=== PATIENT | female | born 1995 | race Caucasian/White ===

== ENCOUNTER 2017-03-03 12:16 | Emergency (ER) | payer OTHER ==
[2017-03-03 12:25] VITALS: BMI 44.8
[2017-03-03 12:34] VITALS: RESP 18; O2SAT 100
[2017-03-03] MEDS ORDERED: Sodium Chloride 0.9% 1,000 ML IV STA (12:37)
--- NOTE | 2017-03-03 12:52 | ED PDOC ---
Arrival/HPI - General Chief Complaint: Abdominal Pain Time Seen by Provider: 03/03/17 12:30 Historian: Patient - History of Present Illness Narrative History of Present Illness (Text): 03/03/17 12:40 Becky De Luna is a 21 year old female who presents to the emergency department for 3 day duration of lower abdominal pain. Patient denies any nausea , vomiting, diarrhea, or genitourinary symptoms including vaginal discharge and bleeding. Patient's LNMP was 6 months ago and has seen a automotive internet sales manager who told the patient that her symptoms are hormone related. Patient also reports taking Advil for symptoms which temporarily alleviates the pain. PMD: None reported. Time/Duration: < week (3 days) Symptom Onset: Gradual Symptom Course: Unchanged Activities at Onset: Light Context: Home Associated Symptoms (Text): 03/03/17 13:13 3 day history of lower abdominal pain with no nausea vomiting or diarrhea. No genitourinary symptoms. No fever or chills. No vaginal discharge or bleeding. No injury or trauma. She has never experienced this previously. She takes Advil which helps temporarily. She has severe hirsutism. LMP is approximately 6 months ago. She reports that she saw the OR ASSISTANT who told her it was a problem with her hormones. She is scheduled to follow-up next month. Past Medical History - Provider Review Nursing Documentation Reviewed: Yes - Cardiac Hx Cardiac Disorders: No - Pulmonary Hx Respiratory Disorders: No - Neurological Hx Neurological Disorder: No - HEENT Other/Comment: Left eye lid problem - Renal Other/Comment: Kidney problem - Endocrine/Metabolic Other/Comment: Hormone problem, being seen by DANDY TENDER - Hematological/Oncological Hx Blood Disorders: No - Integumentary Hx Dermatological Disorder: No - Musculoskeletal/Rheumatological Hx Musculoskeletal Disorders: No - Gastrointestinal Hx Gastrointestinal Disorders: No - Genitourinary/Gynecological Hx Genitourinary Disorders: No - Psychiatric Hx Psychophysiologic Disorder: No Hx Depression: No Hx Emotional Abuse: No Hx Physical Abuse: No Hx Substance Use: No - Surgical History Other/Comment: Left Eye lid surgery x 3 - Suicidal Assessment Feels Threatened In Home Enviroment: No Family/Social History - Physician Review Nursing Documentation Reviewed: Yes Family/Social History: No Known Family HX Smoking Status: Never Smoked Hx Alcohol Use: No Hx Substance Use: No Hx Substance Use Treatment: No Allergies/Home Meds Allergies/Adverse Reactions: Allergies shellfish derived Allergy (Verified 03/03/17 12:30) RASH Review of Systems - Physician Review All systems were reviewed & negative as marked: Yes - Review of Systems Constitutional: Normal. absent: Fevers Respiratory: Normal. absent: SOB Cardiovascular: Normal. absent: Chest Pain Gastrointestinal: Abdominal Pain (Lower Abdominal Pain). absent: Diarrhea, Nausea, Vomiting Genitourinary Female: Normal. absent: Dysuria, Frequency, Hematuria, Vaginal Bleeding, Vaginal Discharge Skin: Normal Neurological: Normal. absent: Headache, Dizziness Physical Exam Vital Signs Reviewed: Yes Vital Signs Temp Pulse Resp BP Pulse Ox 03/03/17 16:15 98.4 F 96 H 18 137/83 100 03/03/17 12:31 98.6 F 102 H 18 147/87 100 Temperature: Afebrile Blood Pressure: Normal Pulse: Tachycardic Respiratory Rate: Normal Appearance: Positive for: Well-Appearing, Non-Toxic, Comfortable, Other (Obese) Pain Distress: None Mental Status: Positive for: Alert and Oriented X 3 - Systems Exam Head: Present: Atraumatic, Normocephalic Pupils: Present: PERRL Extroacular Muscles: Present: EOMI Conjunctiva: Present: Normal Mouth: Present: Moist Mucous Membranes Pharnyx: No: ERYTHEMA, EXUDATE, TONSILS ENLARGED Neck: Present: Normal Range of Motion Respiratory/Chest: Present: Clear to Auscultation, Good Air Exchange. No: Respiratory Distress, Accessory Muscle Use Cardiovascular: Present: Regular Rate and Rhythm, Normal S1, S2. No: Murmurs Abdomen: Present: Tenderness (Suprapubic LLQ & RLQ tenderness, mild), Normal Bowel Sounds. No: Distention, Peritoneal Signs, Rebound, Guarding Back: Present: Normal Inspection. No: CVA Tenderness Upper Extremity: Present: Normal Inspection. No: Cyanosis, Edema Lower Extremity: Present: Normal Inspection. No: Edema Neurological: Present: GCS=15, CN II-XII Intact, Speech Normal, Motor Func Grossly Intact Skin: Present: Warm, Dry, Normal Color, Other (Moderate Acne). No: Rashes Psychiatric: Present: Alert, Oriented x 3, Normal Insight, Normal Concentration Medical Decision Making ED Course and Treatment: 03/03/17 12:40 Impression: 21 year old female with lower abdominal pain, no nausea, vomiting, diarrhea or urinary symptoms. Plan: -- Abdomen US -- Pelvis US -- Labs -- Pepcid -- IV Fluids -- Toradol -- Reassess and disposition Prior Visits: Notes and results from previous visits were reviewed. Patient was last seen in the emergency department on 11/04/14 for flank pain. Progress Notes: 03/03/17 16:02 Abdominal ultrasound has been read by the radiologist. We are waiting for the pelvic ultrasound reading. 03/03/17 16:42 Pelvic ultrasound as read by the radiologist shows no acute findings - Lab Interpretations Lab Results: 03/03/17 12:59 03/03/17 13:28 Lab Results 03/03/17 13:28: Sodium 138, Potassium 4.0, Chloride 101, Carbon Dioxide 25, Anion Gap 16, BUN 11, Creatinine 0.6, Est GFR ( Amer) > 60, Est GFR (Non- Af Amer) > 60, Random Glucose 105, Calcium 9.3, Total Bilirubin 0.7, AST 32, ALT 47, Alkaline Phosphatase 107, Total Protein 9.0 H, Albumin 4.5, Globulin 4.5 , Albumin/Globulin Ratio 1.0 L, Lipase 66 03/03/17 12:59: Urine Color Yellow, Urine Appearance Clear, Urine pH 7.5, Ur Specific [place] 1.020, Urine Protein 30 H, Urine Glucose (UA) Negative, Urine Ketones Negative, Urine Blood Small H, Urine Nitrate Negative, Urine Bilirubin Negative, Urine Urobilinogen 1.0 H, Ur Leukocyte Esterase Negative, Urine RBC 2 - 5, Urine WBC 0 - 2, Ur Epithelial Cells 3 - 4, Urine Bacteria Small, Urine HCG , Qual Negative 03/03/17 12:59: WBC 6.7, RBC 4.21, Hgb 12.8, Hct 37.2, MCV 88.4, MCH 30.4, MCHC 34.4, RDW 13.6, Plt Count 335, MPV 9.0, Gran % 50.3, Lymph % (Auto) 40.6 H, [place] % (Auto) 8.2 H, Eos % (Auto) 0.6 L, Baso % (Auto) 0.3, Gran # 3.39, Lymph # 2.7, [place] # 0.6, Eos # 0.0, Baso # 0.02 I have reviewed the lab results: Yes - RAD Interpretation Radiology Orders: 03/03/17 12:37 ABDOMEN COMPLETE [US] Stat 03/03/17 12:38 PELVIS ULTRASOUND [US] Routine Abdominal ultrasound is read by the radiologist shows no acute findings. She does have an atrophic kidney, which she is aware of from . Senior Control Systems Engineer: Radiologist - Medication Orders Current Medication Orders: Discontinued Medications Famotidine (Pepcid) 20 mg IVP STAT STA Stop: 03/03/17 12:38 Last Admin: 03/03/17 12:56 Dose: 20 mg Sodium Chloride (Sodium Chloride 0.9%) 1,000 mls @ 1,000 mls/hr IV .Q1H STA Stop: 03/03/17 13:36 Last Admin: 03/03/17 12:56 Dose: 1,000 mls/hr Ketorolac Tromethamine (Toradol) 30 mg IVP STAT STA Stop: 03/03/17 12:38 Last Admin: 03/03/17 12:56 Dose: 30 mg - Luisibe Statement The provider has reviewed the documentation as recorded by the Ursula Whittington Provider Attestation: All medical record entries made by the Ursula were at my direction and personally dictated by me. I have reviewed the chart and agree that the record accurately reflects my personal performance of the history, physical exam, medical decision making, and the department course for this patient. I have also personally directed, reviewed, and agree with the discharge instructions and disposition. Disposition/Present on Arrival - Present on Arrival Any Indicators Present on Arrival: No History of DVT/PE: No History of Uncontrolled Diabetes: No Urinary Catheter: No History of Decub. Ulcer: No History Surgical Site Infection Following: None - Disposition Have Diagnosis and Disposition been Completed?: Yes Diagnosis: Abdominal pain Disposition: HOME/ ROUTINE Disposition Time: 16:42 Patient Plan: Discharge Condition: GOOD Discharge Instructions (ExitCare): Acute Abdominal Pain (ED) Additional Instructions: Follow-up with PMD and OR ASSISTANT. Follow-up in the ER as needed. Prescriptions: Naproxen [Naprosyn] 500 mg PO BID #14 tab Referrals: Sarah Beth Esquivel DO [Primary Care Provider] - Follow up with primary
[2017-03-03 13:01] LABS: ADD MANUAL DIFF? NO
[2017-03-03 13:04] LABS: PH,URINE 7.5 (4.7-8.0); URINE BILIRUBIN NEGATIVE (NEGATIVE); URINE BLOOD SMALL (NEGATIVE); URINE GLUCOSE (UA) NEGATIVE (NEGATIVE); URINE KETONE NEGATIVE (NEGATIVE); URINE LEUKOCYTE ESTERASE NEGATIVE Leu/uL (NEGATIVE); URINE PROTEIN 30 mg/dL (<30 mg/dL)
[2017-03-03 13:05] LABS: BASO # 0.02 K/mm3 (0.0-2.0); BASO % 0.3 % (0.0-3.0); EOS % 0.6 % (1.5-5.0); GRAN # 3.39 (1.4-6.5); GRAN % 50.3 % (50.0-68.0); HEMATOCRIT 37.2 % (36.0-48.0); LYMPH # 2.7 (1.2-3.4); LYMPH % 40.6 % (22.0-35.0); MEAN CELL VOLUME 88.4 fL (80.0-105.0); MEAN CORPUSCULAR HEMOGLOBIN 30.4 pg (25.0-35.0); MEAN CORPUSCULAR HGB CONC 34.4 g/dl (31.0-37.0); MONO # 0.6 (0.1-0.6); MONO % 8.2 % (1.0-6.0); PLATELET COUNT 335 10^3/uL (120.0-450.0); RED CELL DISTRIBUTION WIDTH 13.6 % (11.5-14.5); WHITE BLOOD COUNT 6.7 10^3/ul (4.5-11.0)
[2017-03-03 13:06] LABS: URINE APPEARANCE CLEAR (CLEAR); URINE COLOR YELLOW (YELLOW)
[2017-03-03 13:25] LABS: URINE BACTERIA SMALL (NEG); URINE WBC 0 - 2 /hpf (0-6)
[2017-03-03 13:51] LABS: ALKALINE PHOSPHATASE 107 U/L (38-133); ALT/SGPT 47 U/L (7-56); AST/SGOT 32 U/L (15-39); BILIRUBIN,TOTAL 0.7 mg/dL (0.2-1.3); BLOOD UREA NITROGEN 11 mg/dL (7-21); CALCIUM 9.3 mg/dL (8.4-10.5); CARBON DIOXIDE 25 mmol/L (21-33); CHLORIDE 101 mmol/L (98-107); GFR AFRICAN-AMERICAN > 60; GLUCOSE,RANDOM 105 mg/dL (70-110); LIPASE 66 U/L (23-300); SODIUM 138 mmol/L (132-148)
--- NOTE | 2017-03-03 14:28 | US ---
HISTORY: pain COMPARISON: None. TECHNIQUE: Sonographic evaluation of the abdomen. FINDINGS: LIVER: Measures 12.7 cm. Mild diffusely increased echogenicity of the liver parenchyma. No mass. No intrahepatic bile duct dilatation. GALLBLADDER: Unremarkable. No gallstones. COMMON BILE DUCT: Measures 3 mm. No stones. No dilatation. PANCREAS: Unremarkable as visualized. No mass. No ductal dilatation. RIGHT KIDNEY: Right kidney suboptimally demonstrated. What appears to be the right kidney measures approximately 8.8 cm in length. Likely mildly atrophic. No mass, calculus or hydronephrosis. LEFT KIDNEY: Measures 10.2cm. Normal echogenicity. No calculus, mass, or hydronephrosis. SPLEEN: Normal in size and contour. No mass. AORTA: No aneurysmal dilatation. IVC: Unremarkable. OTHER FINDINGS: None. IMPRESSION: Probable atrophic right kidney. Poorly visualized, particularly upper pole. No mass, calculus or hydronephrosis identified in either kidney. Mild fatty liver. Otherwise unremarkable.
[2017-03-03 16:15] VITALS: BP 137/83; PULSE 96; TEMP 98.4
--- NOTE | 2017-03-03 16:39 | US ---
HISTORY: pain COMPARISON: None available. TECHNIQUE: Transabdominal FINDINGS: UTERUS: Measures 6.0 x 1.7 x 2.7 cm. Normal in size and appearance. No fibroid or other mass lesion seen. ENDOMETRIUM: Measures 5 mm in diameter. Unremarkable. CERVIX: No cervical abnormality identified. RIGHT OVARY: Measures 2.6 x 2.2 x 2.0 cm. No solid mass. Normal flow. 1.4 cm follicle. LEFT OVARY: Measures 2.5 x 1.4 x 2.3 cm. No solid mass. Normal flow. FREE FLUID: No significant free fluid noted. OTHER FINDINGS: None. IMPRESSION: Unremarkable pelvic ultrasound examination.
== END 2017-03-03 16:50 | disposition home or self-care (01) ==
LOC: ED 12:16
DX: R10.9 Unspecified abdominal pain (principal)
CPT/HCPCS: 76700; 76856; 80053; 81001; 83690; 84703; 85025; 96361; 96374; 96375; 99284; J1885; J7040

== ENCOUNTER 2017-10-11 21:50 | Emergency (ER) | payer OTHER ==
[2017-10-11 22:16] VITALS: RESP 18; TEMP 98.4; BMI 42.4
[2017-10-11] MEDS ORDERED: DiphenhydrAMINE 50 mg/ml Inj IVP STA (22:25)
[2017-10-11] MEDS ORDERED: Sodium Chloride 0.9% 1,000 ML IV STA (22:26)
--- NOTE | 2017-10-11 22:29 | ED PDOC ---
Arrival/HPI - General Chief Complaint: Headache Time Seen by Provider: 10/11/17 21:58 Historian: Patient, Parent (father) - History of Present Illness Narrative History of Present Illness (Text): 10/11/17 22:26 This 22 yo female presents to this ED c/o MCCOLLUM x 2 weeks. Patient stated MCCOLLUM has worsen today. Patient noted she has not wearing her prescription eye glasses x 7 days, since they broke. Patient noted MCCOLLUM is left sided. Patient denies fever , diplopia, dizziness, skin rash, sick contact, recent travel, recent trauma, n/ v, photophobia, fever, weakness, paresthesias, or abnormal gait. Time/Duration: Other (see hpi) Symptom Onset: Gradual Symptom Course: Worsening Quality: Throbbing Context: Home Past Medical History - Provider Review Nursing Documentation Reviewed: Yes - Cardiac Hx Cardiac Disorders: No - Pulmonary Hx Respiratory Disorders: No - Neurological Hx Neurological Disorder: No - HEENT Other/Comment: Left eye lid problem - Renal Other/Comment: Kidney problem - Endocrine/Metabolic Other/Comment: Hormone problem, being seen by CRUSHER SUPERVISOR - Hematological/Oncological Hx Blood Disorders: No - Integumentary Hx Dermatological Disorder: No - Musculoskeletal/Rheumatological Hx Musculoskeletal Disorders: No - Gastrointestinal Hx Gastrointestinal Disorders: No - Genitourinary/Gynecological Hx Genitourinary Disorders: No - Psychiatric Hx Psychophysiologic Disorder: No Hx Depression: No Hx Emotional Abuse: No Hx Physical Abuse: No Hx Substance Use: No - Surgical History Other/Comment: Left Eye lid surgery x 3 - Suicidal Assessment Feels Threatened In Home Enviroment: No Family/Social History - Physician Review Nursing Documentation Reviewed: Yes Family/Social History: Other (noncontributory) Smoking Status: Never Smoked Hx Alcohol Use: No Hx Substance Use: No Hx Substance Use Treatment: No Allergies/Home Meds Allergies/Adverse Reactions: Allergies shellfish derived Allergy (Verified 10/11/17 22:10) RASH Home Medications: Home Meds Medication Instructions Recorded Confirmed Hydrochlorothiazide [Microzide] 12.5 mg PO QWK 10/11/17 10/11/17 Review of Systems - Review of Systems Constitutional: Normal. absent: Fatigue, Weight Change, Fevers Eyes: Normal. absent: Vision Changes ENT: Normal. absent: Sore Throat Respiratory: Normal. absent: SOB, Cough Cardiovascular: Normal. absent: Chest Pain, Palpitations Gastrointestinal: Normal. absent: Abdominal Pain, Nausea, Vomiting Genitourinary Female: Normal. absent: Dysuria, Frequency, Hematuria, Vaginal Bleeding, Vaginal Discharge Musculoskeletal: Normal. absent: Back Pain, Neck Pain, Myalgias Skin: Normal. absent: Rash Neurological: Headache. absent: Dizziness, Focal Weakness, Gait Changes, Speech Changes, Facial Droop, Disequilibrium, Seizure Endocrine: Normal Hemo/Lymphatic: Normal Psychiatric: Normal Physical Exam Vital Signs Temp Pulse Resp BP Pulse Ox 10/12/17 02:05 77 18 132/74 100 10/12/17 00:00 78 18 132/78 99 10/11/17 22:12 98.4 F 83 18 138/80 98 10/11/17 22:09 98.4 F 83 20 138/80 98 Temperature: Afebrile Blood Pressure: Normal Pulse: Regular Respiratory Rate: Normal Appearance: Positive for: Well-Appearing, Non-Toxic, Comfortable Pain Distress: None Mental Status: Positive for: Alert and Oriented X 3 - Systems Exam Head: Present: Atraumatic, Normocephalic Pupils: Present: PERRL Extroacular Muscles: Present: EOMI Conjunctiva: Present: Normal Mouth: Present: Moist Mucous Membranes Pharnyx: Present: Normal. No: ERYTHEMA, EXUDATE, TONSILS ENLARGED Neck: Present: Normal Range of Motion. No: Meningeal Signs Respiratory/Chest: Present: Clear to Auscultation, Good Air Exchange. No: Respiratory Distress, Accessory Muscle Use, Wheezes, Retracting, Rhonchi, Tachypneic Cardiovascular: Present: Regular Rate and Rhythm, Normal S1, S2. No: Murmurs Abdomen: No: Tenderness Upper Extremity: Present: Normal Inspection, Normal ROM Lower Extremity: Present: Normal Inspection, Normal ROM Neurological: Present: GCS=15, CN II-XII Intact, Speech Normal, Motor Func Grossly Intact, Normal Sensory Function, Normal Cerebellar Funct, Gait Normal, Memory Normal Skin: Present: Warm, Dry, Normal Color. No: Rashes Psychiatric: Present: Alert, Oriented x 3 Medical Decision Making ED Course and Treatment: 10/12/17 12:49 Nurse stated left iv access had infiltrated and a warmth compress was place on the site. Patient denies pain or discomfort. Patient was recommended to continue applying warmth compress for 1-2 days. To return to emergency if symptoms worsen. 10/12/17 01:49 Re-evaluation. Patient feels better. Discussed results and plan with patient who expresses understanding. All questions answered and there is agreement with the plan to discharge home with instructions. Patient stable for discharge. Return if symptoms persist or worsen Patient was recommended to follow up with neurologist for MCCOLLUM. To see private Business Development Intern to have eye exam, and replacement of her eye glasses. Re-evaluation Time: 01:32 Reassessment Condition: Re-examined, Improved - RAD Interpretation Narrative RAD Interpretations (Text): 10/12/17 00:41 [facility] Division of Radiology [address] [place] [address] Tel. no. Patient Name: JOSE RAMON HECTOR Pt. Address: [address] [place] [address] Rec #: [id number] [place] [address]: Artem Burrell PA-C Pt Order Location: ED : 1995 Female Age: 22 Order #: [id number] Reason for exam: MCCOLLUM CT Scan HEAD W/O CONTRAST Exam Date: 10/11/17 This imaging exam was performed at [facility] EXAM: CT Head Without Intravenous Contrast EXAM DATE/TIME: 10/11/2017 10:25 PM CLINICAL HISTORY: 22 years old, female; Pain; Headache; Additional info: MCCOLLUM TECHNIQUE: Axial computed tomography images of the head/brain without intravenous contrast. All CT scans at this facility use one or more dose reduction techniques, viz.: automated exposure control; ma/kV adjustment per patient size (including targeted exams where dose is matched to indication; i.e. head); or iterative reconstruction technique. Coronal and sagittal reformatted images were created and reviewed. COMPARISON: No relevant prior studies available. FINDINGS: BRAIN: Tiny focus of hyperdensity in the left basal ganglia, most likely representing a calcification. No significant acute abnormality identified. No acute hemorrhage seen within the brain. No acute extra-axial fluid collections visualized. No evidence of significant mass effect within the brain. Normal wyatt-white matter differentiation. VENTRICLES: No evidence of significant hydrocephalus. BONES/JOINTS: No acute fractures or other acute bony abnormality noted. SOFT TISSUES: No acute abnormality of the visualized soft tissues is seen. SINUSES: Visualized paranasal sinuses appear clear. MASTOID AIR CELLS: Mastoid air cells appear clear. IMPRESSION: - No acute findings seen within the brain. - See above for remaining findings. Dictated By: Yael Miranda MD Radiology Orders: 10/11/17 22:25 HEAD W/O CONTRAST [CT] Stat CT Head Without Intravenous Contrast FINDINGS: BRAIN: Tiny focus of hyperdensity in the left basal ganglia, most likely representing a calcification. No significant acute abnormality identified. No acute hemorrhage seen within the brain. No acute extra-axial fluid collections visualized. No evidence of significant mass effect within the brain. Normal wyatt-white matter differentiation. VENTRICLES: No evidence of significant hydrocephalus. BONES/JOINTS: No acute fractures or other acute bony abnormality noted. SOFT TISSUES: No acute abnormality of the visualized soft tissues is seen. SINUSES: Visualized paranasal sinuses appear clear. MASTOID AIR CELLS: Mastoid air cells appear clear. IMPRESSION: - No acute findings seen within the brain. - See above for remaining findings. Dictated and Authenticated by: Yael Miranda MD 10/12/2017 12:20 AM Eastern Time ([place] & [place]) Forklift Material Handler: Radiologist - Medication Orders Current Medication Orders: Discontinued Medications Diphenhydramine HCl (Benadryl) 50 mg IVP STAT STA Stop: 10/11/17 22:26 Last Admin: 10/11/17 22:56 Dose: 50 mg IVP Administration Document 10/11/17 22:56 JO (Rec: 10/11/17 22:56 [id number] Charges for Administration # of IVP Administrations 1 Sodium Chloride (Sodium Chloride 0.9%) 1,000 mls @ 999 mls/hr IV .Q1H1M STA Stop: 10/11/17 23:26 Last Admin: 10/11/17 22:56 Dose: 999 mls/hr eMAR Start Stop Document 10/11/17 22:56 JOL (Rec: 10/11/17 22:56 [id number] Intravenous Solution Start Date 10/11/17 Start Time 22:56 End Date 10/11/17 End time 23:57 Total Infusion Time 61 Ketorolac Tromethamine (Toradol) 15 mg IVP STAT STA Stop: 10/12/17 00:51 Last Admin: 10/12/17 01:32 Dose: 15 mg MAR Pain Assessment Document 10/12/17 01:32 JOL (Rec: 10/12/17 01:32 [id number] Pain Reassessment Is this a pain reassessment? No Sleep Is patient sleeping during reassessment? No Presence of Pain Presence of Pain Yes Pain Scale Used Pain Scale Used Numeric Location Pain Location Body Chief Commercial Officer IVP Administration Document 10/12/17 01:32 JOL (Rec: 10/12/17 01:32 [id number]) Charges for Administration # of IVP Administrations 1 Metoclopramide HCl (Reglan) 10 mg IVP STAT STA Stop: 10/11/17 22:34 Last Admin: 10/11/17 22:56 Dose: 10 mg IVP Administration Document 10/11/17 22:56 JO (Rec: 10/11/17 22:56 [id number]) Charges for Administration # of IVP Administrations 1 Disposition/Present on Arrival - Present on Arrival Any Indicators Present on Arrival: No History of DVT/PE: No History of Uncontrolled Diabetes: No Urinary Catheter: No History of Decub. Ulcer: No History Surgical Site Infection Following: None - Disposition Have Diagnosis and Disposition been Completed?: Yes Diagnosis: Headache Disposition: HOME/ ROUTINE Disposition Time: 01:53 Patient Plan: Discharge Condition: IMPROVED Discharge Instructions (ExitCare): Acute Headache (ED) Additional Instructions: Call private doctor for follow up visit in 1-2 days. Take medication as instructed. Call eye doctor and neurologist for revaluation. you need to get a new eye glasses. Take medication as instructed for MCCOLLUM. return to emergency if MCCOLLUM worsen. Prescriptions: Famotidine [Pepcid] 40 mg PO DAILY #10 tablet Ibuprofen [Motrin] 600 mg PO Q8 PRN #20 tab PRN Reason: Headache Metoclopramide HCl [Reglan] 10 mg PO Q8H PRN #12 tablet PRN Reason: Headache Referrals: Lydia Farias MD [Primary Care Provider] - Follow up with primary Jon Rawls MD [Staff Provider] - Follow up with primary Forms: [employer] (Korean)
--- NOTE | 2017-10-12 00:20 | CT ---
EXAM: CT Head Without Intravenous Contrast EXAM DATE/TIME: 10/11/2017 10:25 PM CLINICAL HISTORY: 22 years old, female; Pain; Headache; Additional info: MCCOLLUM TECHNIQUE: Axial computed tomography images of the head/brain without intravenous contrast. All CT scans at this facility use one or more dose reduction techniques, viz.: automated exposure control; ma/kV adjustment per patient size (including targeted exams where dose is matched to indication; i.e. head); or iterative reconstruction technique. Coronal and sagittal reformatted images were created and reviewed. COMPARISON: No relevant prior studies available. FINDINGS: BRAIN: Tiny focus of hyperdensity in the left basal ganglia, most likely representing a calcification. No significant acute abnormality identified. No acute hemorrhage seen within the brain. No acute extra-axial fluid collections visualized. No evidence of significant mass effect within the brain. Normal wyatt-white matter differentiation. VENTRICLES: No evidence of significant hydrocephalus. BONES/JOINTS: No acute fractures or other acute bony abnormality noted. SOFT TISSUES: No acute abnormality of the visualized soft tissues is seen. SINUSES: Visualized paranasal sinuses appear clear. MASTOID AIR CELLS: Mastoid air cells appear clear. IMPRESSION: - No acute findings seen within the brain. - See above for remaining findings.
[2017-10-12 04:39] VITALS: BP 132/74; PULSE 77; O2SAT 100
== END 2017-10-12 02:10 | disposition home or self-care (01) ==
LOC: ED 21:50
DX: R51 Headache (principal)
CPT/HCPCS: 70450; 96361; 96374; 96375; 99285; J1200; J1885; J2765; J7040

== ENCOUNTER 2018-10-07 10:37 | Emergency (ER) | payer OTHER ==
[2018-10-07 10:43] VITALS: BMI 21.7
[2018-10-07] MEDS ORDERED: Albuterol-Ipratrop 3 mg / 0.5 (3 ml) UD ONE (11:01)
[2018-10-07] MEDS ORDERED: DiphenhydrAMINE 50 mg/ml Inj IVP STA (11:14)
--- NOTE | 2018-10-07 11:51 | ED PDOC ---
Arrival/HPI - General Chief Complaint: Allergic Reaction Time Seen by Provider: 10/07/18 11:00 Historian: Patient - History of Present Illness Narrative History of Present Illness (Text): 23 year old female with PMH of peanut and shellfish allergies presents to the emergency department complaining of urticaria and throat swelling s/p possible nut ingestion at 08:30 this morning, 2.5 hours ago. Since eating the seeds/nuts, patient has been experiencing worsening urticaria on back, face, and arms, and feelings of throat swelling. Associated dry cough. This has happened twice before. never been intubated or hospitalized for her complaints. Took 25mg of Benadryl [employer] without relief. Denies fevers, chills, chest pain, SOB, or any other associated symptoms. Past Medical History - Provider Review Nursing Documentation Reviewed: Yes - Infectious Disease Hx of Infectious Diseases: None - Reproductive Menopause: No - Cardiac Hx Cardiac Disorders: No - Pulmonary Hx Respiratory Disorders: No - Neurological Hx Neurological Disorder: No - HEENT Other/Comment: Left eye lid problem - Renal Other/Comment: Kidney problem - Endocrine/Metabolic Other/Comment: Hormone problem, being seen by [employer] - Hematological/Oncological Hx Blood Disorders: No - Integumentary Hx Dermatological Disorder: No - Musculoskeletal/Rheumatological Hx Musculoskeletal Disorders: No - Gastrointestinal Hx Gastrointestinal Disorders: No - Genitourinary/Gynecological Hx Genitourinary Disorders: No - Psychiatric Hx Psychophysiologic Disorder: No Hx Depression: No Hx Emotional Abuse: No Hx Physical Abuse: No Hx Substance Use: No - Surgical History Other/Comment: Left Eye lid surgery x 3 - Anesthesia Hx Anesthesia Reactions: No Hx Malignant Hyperthermia: No - Suicidal Assessment Feels Threatened In Home Enviroment: No Family/Social History - Physician Review Nursing Documentation Reviewed: Yes Family/Social History: No Known Family HX Smoking Status: Never Smoked Hx Alcohol Use: No Hx Substance Use: No Hx Substance Use Treatment: No Allergies/Home Meds Allergies/Adverse Reactions: Allergies peanut Allergy (Verified 10/07/18 10:47) ANAPHYLAXIS shellfish derived Allergy (Verified 10/11/17 22:10) RASH Home Medications: Home Meds Medication Instructions Recorded Confirmed Hydrochlorothiazide [Microzide] 12.5 mg PO QWK 10/11/17 10/11/17 Review of Systems - Physician Review All systems were reviewed & negative as marked: Yes - Review of Systems Constitutional: Normal Eyes: Normal. absent: Vision Changes ENT: Other (throat swelling). absent: Sore Throat, Sinus Congestion Respiratory: SOB, Cough, Wheezing Cardiovascular: Normal. absent: Chest Pain, Palpitations, Syncope Gastrointestinal: Normal. absent: Abdominal Pain, Nausea, Vomiting Genitourinary Female: Normal. absent: Dysuria, Frequency Musculoskeletal: Normal. absent: Arthralgias, Back Pain Skin: Normal, Rash Neurological: Normal. absent: Headache, Dizziness Endocrine: Normal Hemo/Lymphatic: Normal Psychiatric: Normal Physical Exam Vital Signs Reviewed: Yes Vital Signs Temp Pulse Resp BP Pulse Ox 10/07/18 10:43 98.6 F 96 H 20 124/86 99 10/07/18 10:38 98.6 F 96 H 20 124/86 99 Temperature: Afebrile Blood Pressure: Normal Pulse: Regular Respiratory Rate: Normal Appearance: Positive for: Well-Appearing, Non-Toxic, Comfortable Pain Distress: None Mental Status: Positive for: Alert and Oriented X 3 - Systems Exam Head: Present: Atraumatic, Normocephalic, Other (urticaria left cheek) Pupils: Present: PERRL Extroacular Muscles: Present: EOMI Conjunctiva: Present: Normal Ears: Present: Normal, NORMAL TM, Normal Canal. No: Erythema, TM Bulging Mouth: Present: Moist Mucous Membranes Pharnyx: Present: Normal. No: ERYTHEMA, EXUDATE, TONSILS ENLARGED, Peritonsilar Swelling, Uvular Deviation, Strider, Soft Palate/Uvular Edema Nose (External): Present: Atraumatic Nose (Internal): Present: Normal Inspection Neck: Present: Normal Range of Motion. No: Meningeal Signs, MIDLINE TENDERNESS, Paraspinal Tenderness, Lymphadenopathy Respiratory/Chest: Present: Clear to Auscultation, Good Air Exchange. No: Respiratory Distress, Accessory Muscle Use, Wheezes, Decreased Breath Sounds, Re tracting, Tachypneic Cardiovascular: Present: Regular Rate and Rhythm, Normal S1, S2, Peripheal Pulses Present. No: Murmurs Abdomen: Present: Normal Bowel Sounds. No: Tenderness, Distention, Peritoneal Signs, Rebound, Guarding Back: Present: Other (urticaria). No: CVA Tenderness, Midline Tenderness Upper Extremity: Present: Normal ROM, NORMAL PULSES, Neurovascularly Intact, Capillary Refill < 2s, Other (urticaria). No: Cyanosis, Edema Lower Extremity: Present: Normal Inspection, NORMAL PULSES, Normal ROM, Neurovascularly Intact, Capillary Refill < 2 s. No: Edema, CALF TENDERNESS Neurological: Present: GCS=15, CN II-XII Intact, Speech Normal, Motor Func Grossly Intact, Normal Sensory Function, Gait Normal Skin: Present: Warm, Dry, Normal Color, Other (urticaria to bilateral lower back, face, and upper arms) Lymphatic: No: Cervical Adenopathy Psychiatric: Present: Alert, Oriented x 3, Normal Insight, Normal Concentration, Normal Affect, Normal Mood Medical Decision Making ED Course and Treatment: 10/07/18 11:46 Initial Plan: * Solumedrol * Pepcid * Benadryl * Duoneb * Reassess and Disposition Solumedrol and duoneb given on arrival. On initial exam, patient is in NAD, speaking in full sentences, complaining of throat swelling and rash. Lungs are clear, no wheezes. Dr. Bull evaluated and examined patient at bedside. 12:50pm Patient sleeping soundly in stretcher. No respiratory distress. Lungs remain clear. 13:20 Patient reports resolution of symptoms, requesting discharge home. Patient discharged by Dr. Bull. Diagnostic testing and plan of care discussed with patient. Strict instructions given regarding prescription use, importance of followup, and signs/symptoms to return to ER including difficulty breathing, swallowing, SOB, worsening rash, or any other new/worsening symptoms. Patient verbalizes understanding of instructions and was given the opportunity to ask questions. Patient A&Ox3, ambulating with steady gait, with vital signs stable for discharge. - Medication Orders Current Medication Orders: Discontinued Medications Diphenhydramine HCl (Benadryl) 50 mg IVP STAT STA Stop: 10/07/18 11:15 Famotidine (Pepcid) 20 mg IVP STAT STA Stop: 10/07/18 11:15 Methylprednisolone (Solu-Medrol) 125 mg IVP STAT STA Stop: 10/07/18 11:15 Disposition/Present on Arrival - Present on Arrival Any Indicators Present on Arrival: No History of DVT/PE: No History of Uncontrolled Diabetes: No Urinary Catheter: No History of Decub. Ulcer: No History Surgical Site Infection Following: None - Disposition Have Diagnosis and Disposition been Completed?: Yes Diagnosis: Allergic reaction Disposition: HOME/ ROUTINE Disposition Time: 13:20 Patient Plan: Discharge Condition: STABLE Discharge Instructions (ExitCare): Food Allergy, Angioedema, Epinephrine Autoinjectors Additional Instructions: follow up with your doctor/clinic. you may need further testing as an outpatient. return to any er with worsening symptoms or concerns. Prescriptions: DiphenhydrAMINE [Benadryl] 25 mg PO Q4 PRN #20 cap PRN Reason: Itching / Pruritus Epinephrine [Epipen] 0.3 mg IJ ONCE PRN #1 auto.injct PRN Reason: Anaphylaxis Famotidine [Pepcid] 20 mg PO DAILY #7 tab Prednisone 50 mg PO DAILY #5 tablet Referrals: Sarah Beth Esquivel DO [Primary Care Provider] - Follow up with primary Forms: [employer] (Thai)
[2018-10-07 13:23] VITALS: BP 115/67; PULSE 82; RESP 18; TEMP 98.4; O2SAT 98
== END 2018-10-07 13:29 | disposition home or self-care (01) ==
LOC: ED 10:37
DX: T78.49XA Other allergy, initial encounter (principal); X58.XXXA Exposure to other specified factors, initial encounter
CPT/HCPCS: 96374; 96375; 99284; J1200; J2930